=== PATIENT | female | born 1965 | race African-American/Black ===

== ENCOUNTER 2019-09-27 10:38 | Emergency (ER) | payer MEDICAID, MEDICARE ==
[~2019-09-27] VITALS: Ht 154.9 cm; Wt 118.0 kg
[2019-09-27] MEDS ORDERED: FURO-152 PO (11:00)
[2019-09-27] MEDS ORDERED: LOSA25TA26 PO (11:00)
[2019-09-27] MEDS ORDERED: FUROSEMIDE 40MG/4ML VIAL IV ONE (11:15)
[2019-09-27 11:46] LABS: BASOPHILS % 0.8 % (0.0-2.0); EOSINOPHILS % 1.5 % (0.0-5.0); HEMATOCRIT. 34.3 % (36.0-48.0); HEMOGLOBIN. 10.9 g/dL (12.0-16.0); LYMPHOCYTES % 14.9 % (20.0-50.0); MEAN CORPUSCULAR HEMOGLOBIN 27.5 pg (28.0-32.0); MEAN CORPUSCULAR VOLUME 86.8 fL (81.0-99.0); MEAN PLATELET VOLUME 7.7 fl (7.4-10.4); MONOCYTES % 5.6 % (2.0-8.0); NEUTROPHILS % 77.2 % (40.0-76.0); PLATELET 441 x1000/uL (130-400); RED BLOOD CELL COUNT 3.95 mill/uL (4.2-5.4)
[2019-09-27 11:50] LABS: CHLORIDE 105 mEq/L (98-107)
[2019-09-27 12:28] VITALS: BP 165/90
== END 2019-09-27 12:30 | disposition home or self-care (01) ==
LOC: ER 10:38
DX: I11.0 Hypertensive heart disease with heart failure (principal); I50.9 Heart failure, unspecified; R06.02 Shortness of breath; E11.9 Type 2 diabetes mellitus without complications
CPT/HCPCS: 36415; 71045; 80053; 83880; 85025; 93005; 96374; 99284; J1940